=== PATIENT | female | born 1965 | race Caucasian/White ===

== ENCOUNTER → 2021-09-25 | Outpatient (CLI) | payer OTHER | LOC: COL.RAD 09:29 | DX: K80.20 Calculus of gallbladder without cholecystitis without obstruction (principal) | CPT/HCPCS: A9537 ==

== ENCOUNTER 2021-10-09 09:04 | Day surgery (SDC) | payer OTHER ==
[~2021-10-09] VITALS: Ht 177.8 cm; Wt 128.4 kg
[2021-10-09] MEDS ORDERED: SINGULAIR 110 MG/TAB PO (09:42)
[2021-10-09] MEDS ORDERED: CLARITIN 1010 MG/TAB PO (09:42)
[2021-10-09] MEDS ORDERED: DECARA PO (09:43)
[2021-10-09] MEDS ORDERED: IBU800 M1 PO (09:44)
[2021-10-09 10:01] VITALS: BP 151/81; PULSE 67; TEMP 97.8
[2021-10-09 10:35] LABS: ALBUMIN 4.2 gm/dL (3.5-5.0); BILIRUBIN,TOTAL 0.6 mg/dL (0.2-1.2); CREATININE, serum 0.72 mg/dL (0.57-1.11); POTASSIUM 4.4 mmol/L (3.5-4.5); TOTAL PROTEIN 7.5 gm/dL (6.2-8.1)
[2021-10-09] MEDS ORDERED: MOTRIN 600600 MG/TAB PO (12:01)
[2021-10-09] MEDS ORDERED: DILAUDID 4MG TAB4 MG PO (12:02)
[2021-10-09 14:05] VITALS: BP 140/68; PULSE 62; TEMP 97.7
--- NOTE | 2021-10-09 14:05 | NUR ---
Patient arrived from PACU escorted by SHARON Gibson. Patient is drowsy but oriented. x5 lap sites are clean, dry and intact. No swelling or bleeding noted. Patient is tolerating ice chips. Denies nausea, but states she is "not ready" for a drink of water. Call rae is on her lap, and the patient verbalized understanding how to use the call rae. Vitals obtained. Patient is on 2L via nasal cannula.
[2021-10-09 14:20] VITALS: BP 136/63; PULSE 58
--- NOTE | 2021-10-09 14:20 | NUR ---
Patient is more awake, still oriented. She is resting in bed. Call rae remains on her lap. Vitals obtained.
[2021-10-09 14:35] VITALS: BP 143/59; PULSE 52
--- NOTE | 2021-10-09 14:35 | NUR ---
Patient is alert and oriented. States discomfort but is unable to rate pain. Sprite provided. The patient is tolerating it well. Denies nausea. No vomiting. Vitals obtained. O2 continues at 2L NC. Will continue to monitor per intervals.
--- NOTE | 2021-10-09 14:40 | NUR ---
New warm blanket applied to affected area. The patient was assisted with repositioning in bed, blanket applied to lower back area. The patient expressed feeling "much better". The patient states she suffers from chronic lower back pain.
[2021-10-09 14:50] VITALS: BP 144/62; PULSE 53
--- NOTE | 2021-10-09 14:50 | NUR ---
The patient requested crackers and is tolerating well. Continues to deny nausea. No vomiting. Mati, was brought in from the waiting room. Patient can now rate pain 4/10. O2 titrated down to 1L via nasal cannula. Vitals obtained and remain stable.
--- NOTE | 2021-10-09 15:10 | NUR ---
O2 discontinued. O2 stats remain above 95%. BP obtained. The patient was assissted to bedside where she sat for a few minutes. Vitals monitored. The patient was then assisted to the bathroom with the RN and Mati. The patient was able to void, then back to bed to sit at bedside. The patient expressed desire to be discharged. Call rae remains within reach.
[2021-10-09 15:20] VITALS: BP 136/68; PULSE 62
--- NOTE | 2021-10-09 15:35 | NUR ---
IV discontinued. Catheter tip intact. Pressure bandage applied. No redness or swelling noted. DC instructions and educational material was reviewed with the patient and Mati. Both verbalized understanding and the patient signed the related paperwork. The patient denied having any questions or concerns. Patient was then dismissed from [facility] via wheelchair to the patient entrence and transferred into the care of her Mati, who is present to drive. Mati has the DC packet in his bag, along with the follow up appointment card.
== END 2021-10-09 15:45 | disposition home or self-care (01) ==
LOC: SDCO 09:04
PROVIDERS: Surgery
DX: K80.64 Calculus of gallbladder and bile duct with chronic cholecystitis without obstruction (principal)
CPT/HCPCS: J0360; J0690; J1100; J1885; J2250; J2405; J2704; J2765; J3010; J7120